=== PATIENT | male | born 1990 | race Two or more races ===

== ENCOUNTER 2017-01-08 21:13 | Emergency (ER) | payer SELFPAY ==
[~2017-01-08] VITALS: Ht 182.9 cm; Wt 97.5 kg
[2017-01-08 21:20] VITALS: BP 114/73
[2017-01-08] MEDS ORDERED: NKM (21:20)
[2017-01-08] MEDS ORDERED: LORazepam Inj 2mg/ml 1ml IM ONE (22:00)
--- NOTE | 2017-01-08 22:38 | Emergency Room Report ---
History of Present Illness General Chief Complaint: Substance Abuse Source: Patient, EMS Present Illness HPI Is a 26-year-old male brought in by police and EMS for abnormal behavior. He was acting erratically and yelling in traffic. He need to using crystal methamphetamine. He was agitated sent to be restrained. By time he got here he is calmer. He admits to using methamphetamine. Denies any other drug use. No suicidal thought homicidal thought. Allergies: Coded Allergies: No Known Allergies (Unverified , 01/08/17) Patient History Past Medical History: none, see triage record, old chart reviewed Past Surgical History: none Pertinent Family History: none Social History: Reports: drug use Immunizations: other Reviewed Nursing Documentation: PMH: Agreed, PSxH: Agreed Nursing Documentation-PMH Past Medical History: No Stated History Review of Systems Eye: Denies: blurred vision, eye pain ENT: Denies: ear pain, nose congestion, throat swelling Respiratory: Denies: cough, shortness of breath Cardiovascular: Denies: chest pain, palpitations Gastrointestinal: Denies: abdominal pain, diarrhea, nausea, vomiting Musculoskeletal: Denies: back pain, joint pain Skin: Denies: rash Neurological: Denies: headache, numbness Endocrine: Denies: increased thirst, increased urine Hematologic/Lymphatic: Denies: easy bruising All Other Systems: negative except mentioned in HPI Physical Exam Vital Signs Date Time Temp Pulse Resp B/P Pulse Ox O2 Delivery O2 Flow Rate FiO2 01/08/17 21:16 97.9 154 18 152/84 98 Room Air vitals with tachycardia Sp02 EP Interpretation: reviewed, normal General Appearance: well appearing, no apparent distress, alert Head: normocephalic, atraumatic Eyes: bilateral eye EOMI, bilateral eye PERRL ENT: hearing grossly normal, normal pharynx Neck: full range of motion, supple, no meningismus Respiratory: chest non-tender, lungs clear, normal breath sounds Cardiovascular #1: regular rate, rhythm, no murmur, tachycardia Gastrointestinal: normal bowel sounds, non tender, no mass, no organomegaly, no bruit, non-distended Musculoskeletal: back normal, normal range of motion Neurologic: alert, oriented x3 Psychiatric: other Skin: warm/dry Medical Decision Making Diagnostic Impression: Primary Impression: Substance abuse Additional Impression: Psychosis Qualified Codes: F23 - Brief psychotic disorder ER Course 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 He is calmer now. We'll discharge home. His brother's here to pick him up. Not suicidal or homicidal. Last Vital Signs Date Time Temp Pulse Resp B/P Pulse Ox O2 Delivery O2 Flow Rate FiO2 01/08/17 21:16 97.9 154 18 152/84 98 Room Air Status: improved Disposition: HOME, SELF-CARE Condition: Stable Referrals: NOT CHOSEN IPA/MD,REFERRING (PCP) Patient Instructions: Substance Use Disorder Additional Instructions: Abstain from drugs and alcohol. Followup with your Dr. in 7 days. Return if worse. MILES ORELLANA M.D. Jan 08, 2017 22:37
[2017-01-08 22:40] VITALS: BP 117/73
[2017-01-08 22:45] VITALS: BP 117/73
== END 2017-01-08 22:45 | disposition home or self-care (01) ==
LOC: EDBD 21:13 → EMR 21:39
DX: F15.10 Other stimulant abuse, uncomplicated (principal); F23 Brief psychotic disorder
CPT/HCPCS: 96372; 99283